=== PATIENT | male | born 1960 | race Caucasian/White ===

== ENCOUNTER 2020-07-21 08:14 | Outpatient (REF) | payer OTHER, SELFPAY ==
--- NOTE | ~2020-07-21 | XR_ITS ---
EXAMINATION: XR KNEES, STANDING AP XR KNEE, RIGHT CLINICAL INFORMATION: Right knee pain. COMPARISON: Radiographs right knee 11/06/2012. TECHNIQUE: Standing AP view of both knees is performed along with lateral and axial patella views of the right knee. FINDINGS: RIGHT: There are osteoarthritic changes at greatest medial knee joint compartment with prominent joint narrowing and mild subchondral sclerosis and secondary genu varus. Lesser degenerative changes lateral compartment. There is some fine chondrocalcinosis menisci. Lateral view shows moderate suprapatellar effusion. Hoffa's fat pad appears normal. Axial view patella shows no joint narrowing, lateralization, or tilting. Mild lateral patellar spurring. There is no fracture or dislocation or destructive process. LEFT: No significant joint narrowing. No erosive change. Question trace chondrocalcinosis menisci. Bony mineralization normal. No destructive process. XR/XR knee standing BI IMPRESSION: RIGHT: 1. Osteoarthritis greatest medial compartment with secondary genu varus. 2. Moderate suprapatellar effusion. 3. Chondrocalcinosis menisci. LEFT: 1. No significant joint narrowing. 2. Probable trace chondrocalcinosis.
--- NOTE | ~2020-07-21 | XR_ITS ---
EXAMINATION: XR KNEES, STANDING AP XR KNEE, RIGHT CLINICAL INFORMATION: Right knee pain. COMPARISON: Radiographs right knee 11/06/2012. TECHNIQUE: Standing AP view of both knees is performed along with lateral and axial patella views of the right knee. FINDINGS: RIGHT: There are osteoarthritic changes at greatest medial knee joint compartment with prominent joint narrowing and mild subchondral sclerosis and secondary genu varus. Lesser degenerative changes lateral compartment. There is some fine chondrocalcinosis menisci. Lateral view shows moderate suprapatellar effusion. Hoffa's fat pad appears normal. Axial view patella shows no joint narrowing, lateralization, or tilting. Mild lateral patellar spurring. There is no fracture or dislocation or destructive process. LEFT: No significant joint narrowing. No erosive change. Question trace chondrocalcinosis menisci. Bony mineralization normal. No destructive process. XR/XR knee RT 2V IMPRESSION: RIGHT: 1. Osteoarthritis greatest medial compartment with secondary genu varus. 2. Moderate suprapatellar effusion. 3. Chondrocalcinosis menisci. LEFT: 1. No significant joint narrowing. 2. Probable trace chondrocalcinosis.
== END 2020-07-21 08:15 | disposition home or self-care (01) ==
LOC: HO.HOSX 08:14
PROVIDERS: Visit Provider Orthopaedic Surgery
DX: M17.11 Unilateral primary osteoarthritis, right knee (principal); M25.561 Pain in right knee; M25.562 Pain in left knee
CPT/HCPCS: 20610; 73560; 73565; J1040

== ENCOUNTER → 2020-10-19 09:23 | Outpatient (BNVA) | payer OTHER, SELFPAY | PROVIDERS: PCP Internal Medicine Hematology & Oncology; Visit Provider Orthopaedic Surgery | DX: M25.561 Pain in right knee (principal); Z88.6 Allergy status to analgesic agent; I10 Essential (primary) hypertension | CPT/HCPCS: 20610; J1100 ==

== ENCOUNTER → 2020-11-02 09:32 | Outpatient (BNVA) | payer OTHER, SELFPAY | PROVIDERS: PCP Internal Medicine Hematology & Oncology; Visit Provider Orthopaedic Surgery | DX: M17.11 Unilateral primary osteoarthritis, right knee (principal) | CPT/HCPCS: 20610 ==

== ENCOUNTER → 2020-12-24 08:55 | Outpatient (BNVA) | payer OTHER, SELFPAY | PROVIDERS: Visit Provider Orthopaedic Surgery | DX: Z01.812 Encounter for preprocedural laboratory examination (principal); Z01.810 Encounter for preprocedural cardiovascular examination ==

== ENCOUNTER 2021-01-11 11:04 | Outpatient (RCR) | payer OTHER, SELFPAY ==
--- NOTE | 2021-01-11 12:01 | MHC.PT.EP ---
[facility] [place] Office [place] Office [place] Office [address] [place] Infante [address] [phone] F: [phone] F: [phone] F: [phone] F: [phone] Physical Therapy Plan of Care Date of Evaluation: Date of Surgery: Diagnosis: prehab for R TKA 01/19/21 Assessment: 60 y/o referred to PT for prehab for R TKA 01/19/21. He is having pain and difficulty with walking, stairs, squatting, and kneeling. He has been walking with single axillary crutch and knee sleeve. Examination shows decreased R knee AROM 0-10-108, increased pain, decreased HS/gastroc length, decreased knee/hip strength on R and impaired gait pattern. Extensive review on Physical therapy expectations pre and post- TKA, use of ice and elevation, safety on stairs, and HEP. No further questions at this time. D/c to I HEP and anticiapated TKA surgery. Frequency and Duration: The patient will be seen Short Term Goals: no goals needed [facility] Goals: Treatment Plan: Modalities to reduce pain, spasms and effusion. Manual therapy to restore motion and function. Therapeutic exercise to improve strength and flexibility. Neuromuscular re-education for posture and balance. Therapeutic activities to return to functional activities of daily living. Electronically signed by: Monica Montgomery PT Please sign and return to therapist. Thank you for your referral.
--- NOTE | 2021-02-02 09:32 | MHC.PT.DC ---
[facility] [place] Office [place] [facility] [place] Office [address] [place] Infante [address] [phone] F: [phone] F: [phone] F: [phone] F: [phone] Physical Therapy Discharge Report Diagnosis: prehab for R TKA 01/19/21 Date of Surgery: Date of Evaluation: 01/11/21 Date of Discharge: 02/02/21 Treatments to Date: 1 Cancellations to Date: 0 No Shows to Date: 0 Discharge Status: Independent with HEP Discharge Summary: 60 y/o referred to PT for prehab for R TKA 01/19/21. He is having pain and difficulty with walking, stairs, squatting, and kneeling. He has been walking with single axillary crutch and knee sleeve. Examination shows decreased R knee AROM 0-10-108, increased pain, decreased HS/gastroc length, decreased knee/hip strength on R and impaired gait pattern. Extensive review on Physical therapy expectations pre and post- TKA, use of ice and elevation, safety on stairs, and HEP. No further questions at this time. D/c to I HEP and anticipated TKA surgery. Electronically signed by: Monica Montgomery PT Please sign and return to therapist. Thank you for your referral.
== END 2021-02-02 09:32 | disposition home or self-care (01) ==
LOC: HO.PTCHIC 11:04
PROVIDERS: PCP Internal Medicine; Visit Provider Orthopaedic Surgery
DX: M17.11 Unilateral primary osteoarthritis, right knee (principal)
CPT/HCPCS: 97110; 97161

== ENCOUNTER → 2021-01-18 09:02 | Outpatient (BNVA) | payer OTHER, SELFPAY | PROVIDERS: PCP Internal Medicine; Visit Provider Physician Assistant ==

== ENCOUNTER 2021-01-19 06:10 | Inpatient (IN) | payer OTHER, SELFPAY ==
[2020-12-24 10:13] LABS: MANUAL DIFF FLAG NO
--- NOTE | 2020-12-24 10:19 | ECG_ITS ---
Test Reason : preop Blood Pressure : / mmHG Vent. Rate : 073 BPM Atrial Rate : 073 BPM P-R Int : 108 ms QRS Dur : 094 ms QT Int : 378 ms P-R-T Axes : 038 -50 050 degrees QTc Int : 416 ms Sinus rhythm with short FL Left axis deviation Abnormal ECG No previous ECGs available Referred By: Hank Steiner Electronically Signed By:SHANTELLE CAVAZOS MD
[2020-12-24 10:49] LABS: Basophils Absolute Auto 0.1 X10*3/uL (0.0-0.2); Basophils Percent Auto 0.6 % (0-2); Eosinophils Absolute Auto 0.2 X10*3/uL (0.0-0.4); Eosinophils Percent Auto 2.4 % (0-4); Hematocrit 46.5 % (42.0-52.0); Imm Gran Abs Auto 0.07 X10*3/uL (0.00-0.03); Imm Gran Pct Auto 0.7 % (0.0-0.4); Lymphocytes Absolute Auto 1.8 X10*3/uL (1.2-4.9); Mean Corpuscular HGB Conc 32.3 g/dl (31.0-36.0); Mean Corpuscular Volume 83.6 fL (80.0-98.0); Mean Platelet Volume 9.2 fL (9.4-12.4); Monocytes Percent Auto 10.4 % (2-11); Neutrophils Absolute Auto 6.7 x10*3/uL (2.0-8.3); Neutrophils Percent Auto 67.9 % (45-73); Platelet Count 392 X10*3/uL (160-400); Red Blood Count 5.56 X10*6/uL (4.60-5.80); Red Cell Distribution Width 14.1 % (11.0-16.0); White Blood Count 9.9 X10*3/uL (4.8-10.8)
[2020-12-24 11:25] LABS: Anion Gap 10 (12-20); Blood Urea Nitrogen 21 mg/dL (9-16); Calcium 9.1 mg/dL (8.4-10.2); Carbon Dioxide 27 mmol/L (22-29); Chloride 105 mmol/L (96-108); Estimated Glomerular Filt Rate > 60; Glucose Random 95 mg/dL (60-115); Potassium 4.3 mmol/L (3.3-5.1); Sodium 138 mmol/L (135-145)
[2021-01-08 12:21] VITALS: BP 141/79; PULSE 67; RESP 20; O2SAT 97; BMI 27.3
--- NOTE | 2021-01-08 12:53 | P.CONAN_ITS ---
Documented by User: Rhona Maciel NP 01/08/21 13:09 HPI - Anesthesia Eval Consult details Narrative: 60yo M for Right Total Knee Replacement [facility] Active Problems Active Problems: All Active Problems (Updated 01/08/21 @ 12:40 by Mercy Lucas RN) Primary osteoarthritis of right knee (Acute) Past Medical History Medical History Chronic sinusitis COVID-19 vaccine series completed Emphysema of lung History of MRSA infection Hypertension Snores Family History Family history of problems with anesthesia: No Surgical History Surgical History H/O colonoscopy H/O rhinoplasty H/O right knee surgery History of esophagogastroduodenoscopy (EGD) History of Problems with Anesthesia: No Social History Social History Are you a primary dialysis patient care technician to a significant other at home: No Do you presently have visiting nurse or other home services: No Patient Tobacco Use Status: Former Tobacco user Quit Date: 2014-quit cigarettes/currently vaping Tobacco use type: Smokeless Tobacco Years Smoked: 50 Patient Interested in Nicotine Replacement: Yes Patient Given Instructions on How to Stop Smoking: Yes Date Education Initiated: 01/08/21 Use of substances other than those prescribed or required for medical reasons: Yes Substance Use Type Other:: advised to stop 3-5 days pre-op Substance Use Frequency: Occasionally Have you been hit, kicked, punched, or otherwise hurt by someone within the past year? If so, by whom?: No Are you DNR?: No Advance Directives Information Provided: Yes (informational brochure given- patient to check if has & will bring DOS) Advance Directives on File: No Recently lost weight without trying: No Eating poorly because of decreased appetite: No Nutrition Risks: No Nutritional Risk Poor oral hygiene: No Current occupational status: employed Current occupation: [employer] Narrative Narrative: No recent illness. 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 Activity only limited to pain. Meds Allergies Allergy/AdvReac Type Severity Reaction Status Date / Time codeine [Tylenol-Codeine #3] Allergy Intermediate Hives/swell Verified 01/18/21 09:07 ing Home Medications Medication Instructions Recorded Confirmed Last Taken Type acetaminophen 325 mg capsule 650 mg PO BID 07/21/20 01/08/21 Unknown History (Tylenol) hydrochlorothiazide 25 mg tablet 25 mg PO DAILY 07/21/20 01/08/21 Unknown History amlodipine 10 mg tablet 10 mg PO DAILY 10/19/20 01/08/21 01/19/21 History triamcinolone acetonide 0.025 % 1 appl TOPICAL DAILY 10/19/20 01/08/21 Unknown History topical ointment albuterol sulfate 90 mcg/actuation 1 inh INHALATION QID PRN 01/08/21 01/08/21 Unknown History aerosol inhaler (Ventolin HFA) fluticasone propionate 50 1 spray INTRANASAL DAILY 01/08/21 01/08/21 Unknown History mcg/actuation nasal spray,suspension sildenafil 100 mg tablet 100 mg PO BEDTIME 01/18/21 Unknown History Exam Exam Date and Time: January 08, 2021 1253 Height,Weight and Vital Signs: Height 5 ft 5 in Weight 74.389 kg Last Vital Signs Pulse 67 01/08/21 12:21 Resp 20 01/08/21 12:21 BP 141/79 H 01/08/21 12:21 Pulse Ox 97 01/08/21 12:21 Pertinent Lab Results Pertinent Lab Results: Laboratory Tests 12/24/20 12/24/20 10:09 10:09 WBC 9.9 RBC 5.56 Hgb 15.0 Hct 46.5 MCV 83.6 MCH 27.0 MCHC 32.3 RDW 14.1 Plt Count 392 MPV 9.2 L Immature Gran % (Auto) 0.7 H Neut % (Auto) 67.9 Lymph % (Auto) 18.0 L Glades % (Auto) 10.4 Eos % (Auto) 2.4 Baso % (Auto) 0.6 Lymph # (Auto) 1.8 Glades # (Auto) 1.0 Eos # (Auto) 0.2 Baso # (Auto) 0.1 Abs Immat Gran (auto) 0.07 H Absolute Neuts (auto) 6.7 Absolute Nucleated RBC 0.000 Nucleated RBC % (auto) 0.0 Sodium 138 Potassium 4.3 Chloride 105 Carbon Dioxide 27 Anion Gap 10 L BUN 21 H Creatinine 1.13 Estim Creat Clear Calc TNP Estimated GFR > 60 Random Glucose 95 Calcium 9.1 Airway Mallampati Class: I TM Dist: >3cm Neck ROM: Full Adult Head Mouth w/Numbe Teeth: 1. Implant, stable Loose/Missing/Broken Teeth: Yes (Lower molar missing) Heart: RRR Lungs: CTAB Assessment and Plan Assessment Anesthesia Assessment: Anesthesia Plan Discussed, Smoking Cess. Discussed and PAT Visit Final Anesthetic Review Family History of Problems with Anesthesia: No History of Problems with Anesthesia: No Documented by User: Asaf Gonzalez MD 01/19/21 08:35 [facility] Past Medical History Medical History Chronic sinusitis COVID-19 vaccine series completed Emphysema of lung History of MRSA infection Hypertension Snores Surgical History Surgical History H/O colonoscopy H/O rhinoplasty H/O right knee surgery History of esophagogastroduodenoscopy (EGD) Social History Social History Are you a primary dialysis patient care technician to a significant other at home: No Do you presently have visiting nurse or other home services: No Patient Tobacco Use Status: Former Tobacco user Quit Date: 2014-quit cigarettes/currently vaping Tobacco use type: Smokeless Tobacco Years Smoked: 50 Patient Interested in Nicotine Replacement: Yes Patient Given Instructions on How to Stop Smoking: Yes Date Education Initiated: 01/08/21 Use of substances other than those prescribed or required for medical reasons: Yes Substance Use Type Other:: advised to stop 3-5 days pre-op Substance Use Frequency: Occasionally Have you been hit, kicked, punched, or otherwise hurt by someone within the past year? If so, by whom?: No Are you DNR?: No Advance Directives Information Provided: Yes (informational brochure given- patient to check if has & will bring DOS) Advance Directives on File: No Recently lost weight without trying: No Eating poorly because of decreased appetite: No Nutrition Risks: No Nutritional Risk Poor oral hygiene: No Current occupational status: employed Current occupation: [employer] Meds Allergies Allergy/AdvReac Type Severity Reaction Status Date / Time codeine [Tylenol-Codeine #3] Allergy Intermediate Hives/swell Verified 01/18/21 09:07 ing Home Medications Medication Instructions Recorded Confirmed Last Taken Type acetaminophen 325 mg capsule 650 mg PO BID 07/21/20 01/08/21 Unknown History (Tylenol) hydrochlorothiazide 25 mg tablet 25 mg PO DAILY 07/21/20 01/08/21 Unknown History amlodipine 10 mg tablet 10 mg PO DAILY 10/19/20 01/08/21 01/19/21 History triamcinolone acetonide 0.025 % 1 appl TOPICAL DAILY 10/19/20 01/08/21 Unknown History topical ointment albuterol sulfate 90 mcg/actuation 1 inh INHALATION QID PRN 01/08/21 01/08/21 Unknown History aerosol inhaler (Ventolin HFA) fluticasone propionate 50 1 spray INTRANASAL DAILY 01/08/21 01/08/21 Unknown History mcg/actuation nasal spray,suspension sildenafil 100 mg tablet 100 mg PO BEDTIME 01/18/21 Unknown History Exam Airway Adult Head Mouth w/Numbe Teeth: 1. Implant, stable Assessment and Plan Final Anesthetic Review NPO: Yes ASA Class: III Final Preanesthetic Review: No Changes in Pt Med Stat, Meds/Allgs Chart Reviewed, Consent Obtained/Reviewed and Anes Risks/Benef Reviewed Patient Risk: Low Procedure Risk: Intermediate Anesthetic Plan Anesthetic Plan: MAC:, Spinal and Regional Block Disposition: Standard PACU
[2021-01-08 15:26] LABS: MRSA Nasal PCR NEGATIVE (Negative); SA Nasal PCR NEGATIVE (Negative)
[2021-01-19] VITALS (15 sets, daily range): BP systolic 110–161; BP diastolic 46–84; PULSE 67–88; RESP 16–20; TEMP 36.4–36.9; O2SAT 94–100
--- NOTE | ~2021-01-19 | XR_ITS ---
EXAMINATION: XR KNEE, RIGHT CLINICAL INFORMATION: Status post right knee arthroplasty. COMPARISON: Standing AP knees and right knee radiographs 07/19/2020. TECHNIQUE: Portable AP and coarse table lateral views of the right knee are obtained for 3 views. FINDINGS: There is been total knee arthroplasty. The hardware is intact. No dislocation or destructive process. There are overlying skin anterior skin hipolito. There is subcutaneous emphysema and inferior capsular gas as expected. Linear lucency overlying The fibular neck on the lateral view is believed to represent artifact from superimposed subcutaneous emphysema. XR/XR knee RT 2V IMPRESSION: Status post right knee arthroplasty.
[2021-01-19] MEDS: Lactated Ringers 1,000 ML 100 ML IVCONT (06:45)
[2021-01-19 06:53] LABS: COVID-19 Test Negative (Negative)
[2021-01-19] MEDS: vancomycin HCL 1,000 MG in 0.9 % Sodium Chloride 250 ML 270 MG IV ×2 (06:54→20:41)
--- NOTE | 2021-01-19 07:34 | MHC.SHP ---
Pre-Procedural Eval Section A Date of Service: 01/19/21 The patient is an INPATIENT: No Changes since office visit: Yes Patient answered all questions; No Cold of Flu in the past 2 weeks, No New Medical Problems and No Changes in Medication The History & Physical has been completed within 30 days and I have reviewed it.: Yes Section B Chief Complaint: Osteoarthritis Right Knee Allergies: Allergies Allergy/AdvReac Type Severity Reaction Status Date / Time codeine [Tylenol-Codeine #3] Allergy Intermediate Hives/swell Verified 01/18/21 09:07 ing Plan I have reviewed the history and physical and performed a pertinent physical examination on my patient. No changes have occurred unless specified.
--- NOTE | 2021-01-19 09:40 | P.BOP_ITS ---
Brief Operative Note Date of Service: 01/19/21 Pre-op diagnosis: right knee OA Post-op diagnosis: same Procedure: Right TKA Implants: [place] posterior stabilized press fir Kb 04/09/09PS/35a Surgeon: Hank Steiner MD Anesthesia: regional and spinal Was an Experimental Electronics Developer used for this Procedure?: Yes Experimental Electronics Developer: Jessica Ramirez Estimated blood loss (mL): 150 IV fluids (mL): 1,000 Pathology: other Condition: stable Disposition: PACU
--- NOTE | 2021-01-19 09:43 | W.PM.OPN ---
Operative Note Operative Note Date of Service: 01/19/21 Narrative: Pre-op diagnosis: right knee OA Post-op diagnosis: same Procedure: Right TKA Implants: [place] posterior stabilized press fir Trialhajialon 04/09/PS/35a Surgeon: Hank Steiner MD Anesthesia: regional and spinal Was an Press Tender Long Goods used for this Procedure?: Yes Press Tender Long Goods: Jessica Ramirez Estimated blood loss (mL): 150 IV fluids (mL): 1,000 Pathology: other Condition: stable Disposition: PACU Procedure in detail: The patient was brought to the operating room and prepped and draped in standard sterile fashion. A time-out was called to identify proper site proper procedure proper surgeon and IV antibiotics were administered. 1 g of IV tranexamic acid was administered. I began by making a midline incision to the retinaculum and performed a medial parapatellar arthrotomy. The patella was translated laterally and the knee was flexed up. He has a 15 deg flexion contracture and eburnation of the medial copartment. I performed a medial peel and resected the infrapatellar fat pad. Alger's line was then used to drill my intramedullary femoral guide and a 13mm distal femur cut was made in 5 degrees of valgus while protecting the soft tissues. I then measured a # 3 femur and placed my cutting guide and made my anterior posterior and chamfer cuts protecting the soft tissues at all times. Once I was satisfied with my cuts I turned my attention to the tibia. I removed the meniscus and , using an external cutting guide, in line with the tibial crest and the third ray, I made my distal tibial cut in neutral slope of while protecting the posterior soft tissues at all times. An extension block was used to confirm appropriate amount of bony resection. I then sized a #4 tibia and once I was satisfied that there was complete tibial coverage I placed my trial and with the trial femur in place took the knee through range of motion. I was satisfied with the extension and flexion as well as the stability at 0, 30 and 90 degrees. I then turned my attention to the patella where I removed 1 cm from the undersurface of the patella and then trialed a 35a patellar button. Again the knee was taken through range of motion I was satisfied with the tracking. I then returned to the femur and drilled my femoral lug holes and prepared the tibia. A femoral bone plug was placed and the knee was irrigated copiously. I then press fit the patella, tibia and femur in standard fashion. I trialed different inserts until I selected a #10 insert. The final insert was placed and a 3 minutes iodine soak with local TXA was performed. The knee was then closed with a running Quill suture, a 3 0 Vicryl and hipolito on the skin. Patient was then placed in sterile dressing and brought to recovery room in stable condition there were no known complications.
[2021-01-19] MEDS: Acetaminophen 325 MG TABLET 975 MG PO (12:02)
[2021-01-19] MEDS: oxyCODONE HCl Immed Release 5 MG TABLET PO ×3 (12:04→20:42)
[2021-01-19] MEDS: Ketorolac Tromethamine 30 MG/ML VIAL 15 MG IVPUSH (12:44)
--- NOTE | 2021-01-19 14:35 | PM.IMCN ---
History of Present Illness Data of Consult Service Date: 01/19/21 Primary Care Provider: Nell Llanes MD HPI Reason for consult: htn 60M admitted to the hospital status post elective right total knee arthroplasty for ongoing osteoarthritis and difficulty ambulating that was not amenable to conservative therapy. Medicine consultation for comorbidities of hypertension and chronic sinusitis and likely COPD. Patient's blood pressure normally well controlled on amlodipine and hydrochlorothiazide, uses Flonase for chronic sinusitis, has an inhaler which she rarely needs to use for likely COPD as he has a 50 pack-year history, currently only using vape. Patient is feeling well postoperatively, has mild discomfort, no chest pain no shortness of breath no fever chills. Review of Systems Review of Systems: Constitutional: Denies fever, denies Chills Eyes: denies blurry vision ENT: denies sore throat CVS: denies chest pain Respiratory: Denies dyspnea GI: no abdominal pain : denies dysuria MSK: denies neck pain Skin: denies rash Neuro: denies specific motor weakness Psych: denies suicidal ideation Endocrine: denies heat/cold intolerance Hematologic: denies easy bleeding Allergy: denies hives [facility] Medical History (Updated 01/19/21 @ 14:40 by Juan Rodrigues MD) Chronic sinusitis COVID-19 vaccine series completed Emphysema of lung History of MRSA infection Hypertension Snores Pertinent family history: no premature CAD Surgical History H/O colonoscopy H/O rhinoplasty H/O right knee surgery History of esophagogastroduodenoscopy (EGD) Social History Are you a primary landcare facilitator to a significant other at home: No Do you presently have visiting nurse or other home services: No Patient Tobacco Use Status: Former Tobacco user Quit Date: 2014-quit cigarettes/currently vaping Tobacco use type: Smokeless Tobacco Years Smoked: 50 Patient Interested in Nicotine Replacement: Yes Patient Given Instructions on How to Stop Smoking: Yes Date Education Initiated: 01/08/21 Use of substances other than those prescribed or required for medical reasons: Yes Substance Use Type Other:: advised to stop 3-5 days pre-op Substance Use Frequency: Occasionally Have you been hit, kicked, punched, or otherwise hurt by someone within the past year? If so, by whom?: No Are you DNR?: No Advance Directives Information Provided: Yes (informational brochure given-patient to check if has & will bring DOS) Advance Directives on File: No Recently lost weight without trying: No Eating poorly because of decreased appetite: No Nutrition Risks: No Nutritional Risk Poor oral hygiene: No Current occupational status: employed Current occupation: [employer] Meds Allergies Allergy/AdvReac Type Severity Reaction Status Date / Time codeine [Tylenol-Codeine #3] Allergy Intermediate Hives/swell Verified 01/18/21 09:07 ing Active Medications: Current Medications Acetaminophen (Acetaminophen 325 Mg Tablet) 650 mg PO Q6H PRN PRN Reason: Pain, Mild (Pain Scale 1-3) Albuterol Sulfate (Albuterol Sulfate 90 Mcg 8 Gm Inhaler) 1 puff INHALE QID PRN PRN Reason: Wheezing Amlodipine Besylate (Amlodipine Besylate 10 Mg Tablet) 10 mg PO DAILY [facility]; Protocol Celecoxib (Celecoxib 200 Mg Capsule) 200 mg PO BID [facility] Docusate Sodium (Docusate Sodium 100 Mg Capsule) 100 mg PO BID [facility] Hydromorphone HCl (Hydromorphone Hcl 0.5 Mg/0.5 Ml Syringe) 0.25 mg IVPUSH Q4H PRN; Protocol PRN Reason: Pain, Severe (Pain Scale 7-10) Vancomycin HCl 1,000 mg/ (Sodium Chloride) 270 mls @ 270 mls/hr IV POSTOP ONE Stop: 01/19/21 19:59 Ondansetron HCl (Ondansetron Hcl 4 Mg/2 Ml Vial) 4 mg IVPUSH Q8H PRN PRN Reason: Nausea and Vomiting Oxycodone HCl (Oxycodone Hcl Immed Release 5 Mg Tablet) 5 mg PO Q4H PRN PRN Reason: Pain, Moderate (Pain Scale 4-6 Oxycodone HCl (Oxycodone Hcl Er 10 Mg Tab.Er.12h) 10 mg PO BID [facility] Sodium Chloride (0.9 % Sodium Chloride Flush 3 Ml Syringe) 3 ml IVFLUSH QSHIFT [facility] Home Medications Medication Instructions Recorded Confirmed Last Taken Type acetaminophen 325 mg capsule 650 mg PO BID 07/21/20 01/08/21 Unknown History (Tylenol) hydrochlorothiazide 25 mg tablet 25 mg PO DAILY 07/21/20 01/08/21 Unknown History amlodipine 10 mg tablet 10 mg PO DAILY 10/19/20 01/08/21 01/19/21 History triamcinolone acetonide 0.025 % 1 appl TOPICAL DAILY 10/19/20 01/08/21 Unknown History topical ointment albuterol sulfate 90 mcg/actuation 1 inh INHALATION QID PRN 01/08/21 01/08/21 Unknown History aerosol inhaler (Ventolin HFA) fluticasone propionate 50 1 spray INTRANASAL DAILY 01/08/21 01/08/21 Unknown History mcg/actuation nasal spray,suspension sildenafil 100 mg tablet 100 mg PO BEDTIME 01/18/21 Unknown History Physical Exam Vital Signs and Narrative: Vital Signs: Last Vital Signs Temp 98.0 F 01/19/21 14:02 Pulse 86 01/19/21 14:02 Resp 18 01/19/21 14:02 BP 161/75 H 01/19/21 14:02 Pulse Ox 95 01/19/21 14:02 BMI result Body Mass Index 27.3 General: no acute distress HEENT: atraumatic Neck: normal to visual inspection CVS: S1, S2, RRR Resp: CTA bilateral Chest: non tender GI: soft, non tender, non distended : no CVA tenderness Skin: no rashes Extremities: no edema Neuro: Oriented X3, grossly intact Psych: cooperative Results Labs CBC and Chem 7: 12/24/20 10:09 12/24/20 10:09 Labs: Laboratory Results - last 24 hr 01/19/21 06:05 COVID-19 ([facility]) Negative COVID-19 Clin Com See Note Imaging Radiologist's Impressions: Impressions Knee X-Ray 01/19/21 10:17 IMPRESSION: Status post right knee arthroplasty. Assessment and Plan (1) Hypertension: Status: Acute 60M admitted for elective right TKA s/p right TKA management per ortho htn amlodipine hctz monitor copd stable, albuterol prn chronic sinusitis flonase
[2021-01-19] MEDS: 0.9 % Sodium Chloride Flush 3 ML SYRINGE IVFLUSH ×2 (15:13→23:35)
--- NOTE | 2021-01-19 15:26 | MHC.CM.PN ---
CM met with Patient at bedside. Patient lives in a house with his /HCP, Son, and Great Niece and he has been using 1 or 2 crutches to assist with mobility. PT is recommending home with PT and Patient is agreeable to a referral to [facility]. CM has initiated and will follow for dc planning. PCP is Dr. Shane Llanes.
[2021-01-19] MEDS: Docusate Sodium 100 MG CAPSULE PO (20:42)
[2021-01-19] MEDS: Celecoxib 200 MG CAPSULE PO (20:42)
[2021-01-19] MEDS: oxyCODONE HCl ER 10 MG TAB.ER.12H PO (20:53)
[2021-01-20] VITALS (8 sets, daily range): BP systolic 131–154; BP diastolic 73–89; PULSE 72–86; RESP 16–19; TEMP 36.2–37.2; O2SAT 94–100
[2021-01-20] MEDS: oxyCODONE HCl Immed Release 5 MG TABLET PO ×4 (06:02→20:53)
[2021-01-20 06:41] LABS: Basophils Percent Auto 0.2 % (0-2); Eosinophils Percent Auto 0.1 % (0-4); Hematocrit 40.4 % (42.0-52.0); Hemoglobin 12.8 g/dl (14.0-18.0); Imm Gran Abs Auto 0.06 X10*3/uL (0.00-0.03); Imm Gran Pct Auto 0.5 % (0.0-0.4); Lymphocytes Absolute Auto 1.4 X10*3/uL (1.2-4.9); Lymphocytes Percent Auto 11.5 % (20-40); MANUAL DIFF FLAG SCAN; Mean Corpuscular HGB Conc 31.7 g/dl (31.0-36.0); Mean Corpuscular Hemoglobin 26.5 pg (27.0-33.0); Mean Corpuscular Volume 83.6 fL (80.0-98.0); Mean Platelet Volume 9.6 fL (9.4-12.4); Monocytes Absolute Auto 1.6 X10*3/uL (0.1-1.2); Monocytes Percent Auto 12.8 % (2-11); Neutrophils Absolute Auto 9.3 x10*3/uL (2.0-8.3); Neutrophils Percent Auto 74.9 % (45-73); Platelet Count 357 X10*3/uL (160-400); Red Blood Count 4.83 X10*6/uL (4.60-5.80); Red Cell Distribution Width 14.9 % (11.0-16.0); SCAN SMEAR FLAG 1; White Blood Count 12.4 X10*3/uL (4.8-10.8)
[2021-01-20 06:42] LABS: Anion Gap 12 (12-20); Blood Urea Nitrogen 21 mg/dL (9-16); Calcium 8.8 mg/dL (8.4-10.2); Carbon Dioxide 25 mmol/L (22-29); Chloride 107 mmol/L (96-108); Creatinine Clr Calc Pharmacy 56.8; Estimated Glomerular Filt Rate 57; Glucose Fasting 122 mg/dL (60-99); Potassium 4.6 mmol/L (3.3-5.1); Sodium 139 mmol/L (135-145)
[2021-01-20] MEDS: oxyCODONE HCl ER 10 MG TAB.ER.12H PO ×2 (07:11→20:53)
[2021-01-20] MEDS: amLODIPine Besylate 10 MG TABLET PO (07:12)
[2021-01-20] MEDS: Docusate Sodium 100 MG CAPSULE PO ×2 (07:12→20:53)
[2021-01-20] MEDS: Fluticasone Propionate Nasal 16 GM SPRAY 1 SPRAY NOSTRIL-B (07:12)
[2021-01-20] MEDS: Celecoxib 200 MG CAPSULE PO ×2 (07:12→20:54)
[2021-01-20] MEDS: Nicotine 21 MG PATCH.TD24 TRANSDERMA (07:12)
[2021-01-20] MEDS: hydroCHLOROthiazide 25 MG TABLET PO (07:13)
[2021-01-20] MEDS: 0.9 % Sodium Chloride Flush 3 ML SYRINGE IVFLUSH ×2 (07:13→15:01)
[2021-01-20 07:33] LABS: SLIDE REVIEW VERIFIED
[2021-01-20] MEDS: Aspirin 325 MG TABLET PO ×2 (09:16→20:52)
--- NOTE | 2021-01-20 09:47 | P.PNOP_ITS ---
Subjective Subjective Date of Service: 01/20/21 Interval history: POD 1 s/p RT TKA no overnight events resting in bed, tolerating pain well, no concerns Physical Exam Vital Signs: Vital Signs: Last Vital Signs Temp 97.4 F 01/20/21 08:00 Pulse 72 01/20/21 08:17 Resp 18 01/20/21 08:00 BP 131/82 01/20/21 08:17 Pulse Ox 96 01/20/21 08:17 BMI result Body Mass Index 27.3 Const: General: cooperative, healthy appearing and no acute distress Resp: Effort & Inspection: normal respiratory effort and able to speak in complete sentences Cardio: Rate: regular rate Peripheral pulses: Peripheral pulses 2+ throughout GI: Palpation (GI): Soft to palpation Skin: General skin exam: no rashes or lesions noted Extrem: Other: incision clean dry and intact. Becky intact. No erythema or joint effusion. Calf supple nontender. Neurovascularly intact. Procedures Date of Service Date of Service: 01/20/21 Progress Note: A&P Assessment and plan (1) Status post total right knee replacement: Status: Acute Assessment and Plan: * Continue pain mgmnt * Begin Aspirin for dvt ppx * begin PT for RT TKA * Dispo planning-Pending PT eval, pain mgmnt Fall Risk Details Current Medications: Current Medications Acetaminophen (Acetaminophen 325 Mg Tablet) 650 mg PO Q6H PRN PRN Reason: Pain, Mild (Pain Scale 1-3) Albuterol Sulfate (Albuterol Sulfate 90 Mcg 8 Gm Inhaler) 1 puff INHALE QID PRN PRN Reason: Wheezing Amlodipine Besylate (Amlodipine Besylate 10 Mg Tablet) 10 mg PO DAILY [facility]; Protocol Last Admin: 01/20/21 07:12 Dose: 10 mg Documented by: Aspirin (Aspirin 325 Mg Tablet) 325 mg PO BID [facility] Last Admin: 01/20/21 09:16 Dose: 325 mg Documented by: Celecoxib (Celecoxib 200 Mg Capsule) 200 mg PO BID [facility] Last Admin: 01/20/21 07:12 Dose: 200 mg Documented by: Docusate Sodium (Docusate Sodium 100 Mg Capsule) 100 mg PO BID [facility] Last Admin: 01/20/21 07:12 Dose: 100 mg Documented by: Fluticasone Propionate (Fluticasone Propionate Nasal 16 Gm [place]) 1 spray NOSTRIL-B DAILY [facility] Last Admin: 01/20/21 07:12 Dose: 1 spray Documented by: Hydrochlorothiazide (Hydrochlorothiazide 12.5 Mg Tablet) 12.5 mg PO DAILY [facility]; Protocol Last Admin: 01/20/21 09:16 Dose: Not Given Documented by: Hydromorphone HCl (Hydromorphone Hcl 0.5 Mg/0.5 Ml Syringe) 0.25 mg IVPUSH Q4H PRN; Protocol PRN Reason: Pain, Severe (Pain Scale 7-10) Nicotine (Nicotine 21 Mg Patch.Td24) 21 mg TRANSDERMA DAILY [facility] Last Admin: 01/20/21 07:12 Dose: 21 mg Documented by: Ondansetron HCl (Ondansetron Hcl 4 Mg/2 Ml Vial) 4 mg IVPUSH Q8H PRN PRN Reason: Nausea and Vomiting Oxycodone HCl (Oxycodone Hcl Immed Release 5 Mg Tablet) 5 mg PO Q4H PRN PRN Reason: Pain, Moderate (Pain Scale 4-6 Last Admin: 01/20/21 06:02 Dose: 5 mg Documented by: Oxycodone HCl (Oxycodone Hcl Er 10 Mg Tab.Er.12h) 10 mg PO BID [facility] Last Admin: 01/20/21 07:11 Dose: 10 mg Documented by: Sodium Chloride (0.9 % Sodium Chloride Flush 3 Ml Syringe) 3 ml IVFLUSH QSHIFT [facility] Last Admin: 01/20/21 07:13 Dose: 3 ml Documented by: Time Spent With Patient Time: Total time spent is greater than 50% in coordination of care (as documented) at patient's floor/unit and/or counseling patient: Time with patient: less than 15 minutes Quality Stroke Does the patient have a stroke diagnosis?: No VTE Prior VTE?: No VTE Risk Level:: Surgical - very high VTE Device Contraindication: N/A - Device Ordered VTE Drug Contraindication: N/A - Med Ordered
[2021-01-21] MEDS: 0.9 % Sodium Chloride Flush 3 ML SYRINGE IVFLUSH ×2 (00:48→08:10)
[2021-01-21 03:55] VITALS: BP 134/67; PULSE 83; RESP 17; TEMP 36.2; O2SAT 94
[2021-01-21 05:29] LABS: MANUAL DIFF FLAG NO
[2021-01-21 05:32] LABS: Basophils Percent Auto 0.4 % (0-2); Eosinophils Absolute Auto 0.1 X10*3/uL (0.0-0.4); Eosinophils Percent Auto 1.1 % (0-4); Hematocrit 37.9 % (42.0-52.0); Hemoglobin 12.5 g/dl (14.0-18.0); Imm Gran Abs Auto 0.06 X10*3/uL (0.00-0.03); Imm Gran Pct Auto 0.6 % (0.0-0.4); Lymphocytes Absolute Auto 3.1 X10*3/uL (1.2-4.9); Lymphocytes Percent Auto 29.2 % (20-40); Mean Corpuscular Hemoglobin 27.4 pg (27.0-33.0); Mean Corpuscular Volume 82.9 fL (80.0-98.0); Mean Platelet Volume 9.3 fL (9.4-12.4); Monocytes Absolute Auto 1.3 X10*3/uL (0.1-1.2); Monocytes Percent Auto 12.3 % (2-11); Neutrophils Absolute Auto 5.9 x10*3/uL (2.0-8.3); Neutrophils Percent Auto 56.4 % (45-73); Platelet Count 329 X10*3/uL (160-400); Red Blood Count 4.57 X10*6/uL (4.60-5.80); Red Cell Distribution Width 15.2 % (11.0-16.0); White Blood Count 10.5 X10*3/uL (4.8-10.8)
[2021-01-21 05:50] LABS: Anion Gap 13 (12-20); Blood Urea Nitrogen 17 mg/dL (9-16); Calcium 8.8 mg/dL (8.4-10.2); Carbon Dioxide 28 mmol/L (22-29); Chloride 102 mmol/L (96-108); Creatinine Clr Calc Pharmacy 59.1; Estimated Glomerular Filt Rate > 60; Glucose Fasting 93 mg/dL (60-99); Potassium 4.1 mmol/L (3.3-5.1); Sodium 139 mmol/L (135-145)
--- NOTE | 2021-01-21 07:18 | HO.POSTANES ---
Post Anesthesia Evaluation Post Anesthesia Evaluation Vital Signs: Vital Signs Temp Pulse Resp BP Pulse Ox 01/21/21 03:55 97.1 F 83 17 134/67 94 01/20/21 23:59 97.5 F 86 17 133/74 94 01/20/21 19:28 98.1 F 73 17 138/73 94 Anesthesia: Spinal and Nerve Block Mental Status: Awake Pain Control: Satisfactory Nausea/Vomiting: None Hydration: Adequate Anesthesia-Related Issues: No Anes. Related Issues
[2021-01-21 07:32] VITALS: BP 119/70; PULSE 86; RESP 18; TEMP 36.8; O2SAT 95
[2021-01-21] MEDS: Nicotine 21 MG PATCH.TD24 TRANSDERMA (08:08)
[2021-01-21] MEDS: amLODIPine Besylate 10 MG TABLET PO (08:08)
[2021-01-21] MEDS: oxyCODONE HCl ER 10 MG TAB.ER.12H PO (08:09)
[2021-01-21] MEDS: Aspirin 325 MG TABLET PO (08:09)
[2021-01-21] MEDS: hydroCHLOROthiazide 12.5 MG TABLET PO (08:09)
[2021-01-21] MEDS: Docusate Sodium 100 MG CAPSULE PO (08:09)
[2021-01-21] MEDS: Celecoxib 200 MG CAPSULE PO (08:09)
[2021-01-21] MEDS: Fluticasone Propionate Nasal 16 GM SPRAY 1 SPRAY NOSTRIL-B (08:12)
[2021-01-21 08:38] VITALS: BP 119/70; PULSE 86; O2SAT 95
--- NOTE | 2021-01-21 09:10 | P.DS_ITS ---
DS: Providers Provider Date of Service: 01/21/21 Date of admission: 01/19/21 06:10 Primary care physician: Nell Llanes MD Consults: 01/19/21 13:42 Consult to Hospitalist Routine Consulting Provider: Hospitalist Reason For Exam: post op medical management DS: Diagnosis Discharge Diagnosis (1) Status post total right knee replacement: Status: Acute DS: Summary Hospital Course Hospital Course: The patient underwent a successful Right total knee arthroplasty, was transferred to PACU and then to the floor to recover. During their stay, their vitals were stable, afebrile at 98.3. Labs were unremarkable, H/H 12.5/37.9. POD 1 he was started on ASA for DVT ppx, they also received PT services twice a day. Prior to discharge, their dressing was change, incision clean dry and intact, new Aquacel dressing applied and the plan was to be discharged home with vna svs Time Spent with Patient Time attestation: Total time spent providing and/or coordinating discharge services: Discharge coordination time: Less than 30 minutes Quality: Stroke Does the patient have a stroke diagnosis?: No Physical Exam Vital Signs: Vital Signs: Last Vital Signs Temp 98.3 F 01/21/21 07:32 Pulse 86 01/21/21 08:38 Resp 18 01/21/21 07:32 BP 119/70 01/21/21 08:38 Pulse Ox 95 01/21/21 08:38 BMI result Body Mass Index 27.3 Const: General: cooperative, healthy appearing and no acute distress Resp: Effort & Inspection: normal respiratory effort and able to speak in complete sentences Cardio: Rate: regular rate Peripheral pulses: Peripheral pulses 2+ throughout GI: Palpation (GI): Soft to palpation Skin: General skin exam: no rashes or lesions noted Extrem: Other: incision clean dry and intact. Becky intact. No erythema or joint effusion. Calf supple nontender. Neurovascularly intact. DS: Data Data Completed and Pending Completed studies during hospitalization [Text1]: Pending at discharge 01/19/21 09:21 Surgical [PTH] Routine Labs on day of discharge: Laboratory Results - last 24 hr 01/21/21 01/21/21 05:16 05:16 WBC 10.5 RBC 4.57 L Hgb 12.5 L Hct 37.9 L MCV 82.9 MCH 27.4 MCHC 33.0 RDW 15.2 Plt Count 329 MPV 9.3 L Immature Gran % (Auto) 0.6 H Neut % (Auto) 56.4 Lymph % (Auto) 29.2 [place] % (Auto) 12.3 H Eos % (Auto) 1.1 Baso % (Auto) 0.4 Lymph # (Auto) 3.1 [place] # (Auto) 1.3 H Eos # (Auto) 0.1 Baso # (Auto) 0.0 Abs Immat Gran (auto) 0.06 H Absolute Neuts (auto) 5.9 Absolute Nucleated RBC 0.000 Nucleated RBC % (auto) 0.0 Sodium 139 Potassium 4.1 Chloride 102 Carbon Dioxide 28 Anion Gap 13 BUN 17 H Creatinine 1.22 Estim Creat Clear Calc 59.1 Estimated GFR > 60 Fasting Glucose 93 Calcium 8.8 Discharge Plan Discharge Patient Disposition: Home Health Service Discharge Diagnosis: s/p rt tka Referrals: Jessica Ramirez PA-C [Physician [facility]] - 2 Weeks (02/04/21 1:00 [facility] Jessica Ramirez PA-C) Discharge Medications: New acetaminophen 325 mg Tablet 650 mg PO Q6H PRN (Reason: Pain, Mild (Pain Scale 1-3)) 30 Days Qty: 240 RF: 0 aspirin 325 mg Tablet 325 mg PO BID 42 Days Qty: 84 RF: 0 oxycodone 5 mg Tablet 5 mg PO Q4H PRN (Reason: Pain, Moderate (Pain Scale 4-6) 7 Days Qty: 42 RF: 0 Continued albuterol sulfate [Ventolin HFA] 90 mcg/actuation Hfa Aerosol Inhaler 1 inh INHALATION QID PRN (Reason: Wheezing) RF: 0 fluticasone propionate 50 mcg/actuation [place],Suspension 1 spray INTRANASAL DAILY RF: 0 (DME) Crutches See Rx Instructions RF: 0 hydrochlorothiazide 12.5 mg capsule 1 cap PO DAILY RF: 0 triamcinolone acetonide 0.025 % ointment 1 appl topical DAILY RF: 0 amlodipine 10 mg tablet 10 mg PO DAILY RF: 0 sildenafil 100 mg tablet 100 mg PO BEDTIME RF: 0 Discontinued acetaminophen [Tylenol] 325 mg capsule 650 mg PO BID RF: 0 Discharge Orders: Discharge Order (Routine); Ordered 01/21/21 Ordered By: Ta-Adrianne Meuse Diet: regular diet Activity on Discharge: Use cane or walker Stand Alone Forms: Patient Portal Discharge page Care Plan Goals: Restore function of joint Health Concerns: none Plan of Treatment: Physical Therapy Pain management DVT prophylaxis Assessment: * Physical Therapy for Total knee arthroplasty: gait training, ROM 0-12, quad strength * Limit stair climbing * No showering, no tub bath-keep dressing clean, dry and intact * No driving x6 weeks * Continue Aspirin twice a day x 6 weeks * Follow up with [facility]ics in 2 weeks
--- NOTE | 2021-01-21 09:47 | MHC.CM.PN ---
PT WILL DC HOME TODAY WITH [facility] FOR HOME PT FAMILY WILL TRANSPORT
== END 2021-01-21 12:20 | disposition home health service (06) | DRG 326 ==
LOC: HO.SSSA 06:11 → HO.S3 11:32
PROVIDERS: Physician Assistant; Admitting Provider Orthopaedic Surgery; PCP Internal Medicine; Visit Provider Orthopaedic Surgery
PROC: 0SRC0JA Replacement of Right Knee Joint with Synthetic Substitute, Uncemented, Open Approach (ICD-10-PCS; CPT 27447; principal; 2021-01-19 07:30)
DX: M17.11 Unilateral primary osteoarthritis, right knee (principal); I10 Essential (primary) hypertension; J44.9 Chronic obstructive pulmonary disease, unspecified; J32.8 Other chronic sinusitis; Z20.822 Contact with and (suspected) exposure to COVID-19; Z87.891 Personal history of nicotine dependence; Z88.5 Allergy status to narcotic agent; Z79.51 Long term (current) use of inhaled steroids; Z79.82 Long term (current) use of aspirin; Z79.899 Other long term (current) drug therapy
CPT/HCPCS: 27447; 36415; 73560; 80048; 85025; 86850; 86900; 86901; 87635; 87640; 87641; 88305; 88311; 93005; 97110; 97116; 97162; C1776; J1100; J1885; J2250; J2405; J3370

== ENCOUNTER → 2021-02-04 12:54 | Outpatient (BNVA) | payer OTHER, SELFPAY | PROVIDERS: PCP Internal Medicine; Visit Provider Physician Assistant ==

== ENCOUNTER → 2021-03-04 13:24 | Outpatient (BNVA) | payer OTHER, SELFPAY | PROVIDERS: PCP Internal Medicine; Visit Provider Physician Assistant ==

== ENCOUNTER 2021-03-24 09:00 | Outpatient (RCR) | payer OTHER, SELFPAY ==
--- NOTE | 2021-02-15 08:43 | MHC.PT.EP ---
[facility] [place] Office [place] Office [place] Office [address] Rogers Infante [address] [facility] [phone] F: [phone] F: [phone] F: [phone] F: [phone] Physical Therapy Plan of Care Date of Evaluation: Date of Surgery: 01/16/21 Diagnosis: s/p R TKA Assessment: Pt is a 60 y/o male referred to PT s/p R TKA DOS: 01/16/21 for management of long Hx of R knee pain resulting in decreased tolerance and ability to perform ambulatory and standing tasks for duration, as well as negotiating stairs, performing squatting activities and heavy HH chores secondary to decreased hip and knee strength, decreased knee ROM as well as gait abnormality, surgical healing process and pain. Pt is deemed an appropriate candidate to receive skilled PT in order to address his physical limitations to improve his functional ability. Frequency and Duration: The patient will be seen 2 x / wk x 6 wks. Short Term Goals: Initiate HEP. Blender Snuff Goals: I with HEP. Treatment Plan: Modalities to reduce pain, spasms and effusion. Manual therapy to restore motion and function. Therapeutic exercise to improve strength and flexibility. Neuromuscular re-education for posture and balance. Therapeutic activities to return to functional activities of daily living. Electronically signed by: Adan Smart PT. Please sign and return to therapist. Thank you for your referral.
--- NOTE | 2021-11-19 08:27 | MHC.PT.DC ---
[facility] [place] Office [place] Office [place] Office [address] Rogers Infante [address] [phone] F: [phone] F: [phone] F: [phone] F: [phone] Physical Therapy Discharge Report Diagnosis: s/p R TKA Date of Surgery: 01/16/21 Date of Evaluation: 02/11/21 Date of Discharge: 03/24/21 Treatments to Date: 7 Cancellations to Date: No Shows to Date: Discharge Status: Achieved Goals Improved Function Independent with HEP Discharge Summary: Pt understands the importance of HEP and is to cont I with exs. Pt unable to perform unilateral bridge due to weakness. Pt progressed with ROM, strength and gait. Pt DC with exs Electronically signed by: Adan Smart PT. Please sign and return to therapist. Thank you for your referral.
== END 2021-11-19 08:22 | disposition home or self-care (01) ==
LOC: HO.PTCHIC 09:00
PROVIDERS: Visit Provider Orthopaedic Surgery
DX: Z96.651 Presence of right artificial knee joint (principal)
CPT/HCPCS: 97110; 97161

== ENCOUNTER 2021-04-15 09:00 | Outpatient (REF) | payer OTHER, SELFPAY ==
--- NOTE | ~2021-04-15 | XR_ITS ---
EXAMINATION: XR KNEE AP STANDING, BILATERAL XR KNEE, RIGHT CLINICAL INFORMATION: Right knee pain. COMPARISON: Right knee radiographs dated 01/19/2021. TECHNIQUE: Standing AP view of both knees and lateral and sunrise views of the right knee. FINDINGS: RIGHT KNEE: Total right knee arthroplasty. Anatomic alignment of the arthroplasty components. No hardware fracture. No perihardware lucency to suggest loosening or infection. Trace joint effusion. No abnormal soft tissue calcification. LEFT KNEE: Mild medial and lateral compartment joint space narrowing with tiny marginal osteophytes. No osseous erosion. No abnormal soft tissue calcification. XR/XR knee RT 2V IMPRESSION: Right knee: Total right knee arthroplasty without evidence of hardware complication. Left knee: Mild medial and lateral compartment osteoarthritis.
--- NOTE | ~2021-04-15 | XR_ITS ---
EXAMINATION: XR KNEE AP STANDING, BILATERAL XR KNEE, RIGHT CLINICAL INFORMATION: Right knee pain. COMPARISON: Right knee radiographs dated 01/19/2021. TECHNIQUE: Standing AP view of both knees and lateral and sunrise views of the right knee. FINDINGS: RIGHT KNEE: Total right knee arthroplasty. Anatomic alignment of the arthroplasty components. No hardware fracture. No perihardware lucency to suggest loosening or infection. Trace joint effusion. No abnormal soft tissue calcification. LEFT KNEE: Mild medial and lateral compartment joint space narrowing with tiny marginal osteophytes. No osseous erosion. No abnormal soft tissue calcification. XR/XR knee standing BI IMPRESSION: Right knee: Total right knee arthroplasty without evidence of hardware complication. Left knee: Mild medial and lateral compartment osteoarthritis.
== END 2021-04-15 09:01 | disposition home or self-care (01) ==
LOC: HO.HOSX 09:00
PROVIDERS: Visit Provider Orthopaedic Surgery
DX: Z47.1 Aftercare following joint replacement surgery (principal); Z96.651 Presence of right artificial knee joint
CPT/HCPCS: 73560; 73565

== ENCOUNTER 2021-11-18 11:57 | Outpatient (REF) | payer OTHER, SELFPAY ==
--- NOTE | ~2021-11-18 | XR_ITS ---
EXAMINATION: BILATERAL AP KNEE. RIGHT KNEE. CLINICAL INFORMATION: Right knee pain COMPARISON: Right knee 04/15/2021 TECHNIQUE: AP bilateral knee standing 1 view. Right knee 2 views. FINDINGS: AP bilateral knee: There is a total right knee prosthesis. There is mild reduction in medial and lateral compartment joint space left knee. No loose bodies are bony erosive changes seen. The soft tissues are normal. Right knee: There is a total right knee prosthesis in alignment. No periprostatic fracture or loosening seen. There is no suprapatellar joint effusion. There are no loose bodies. XR/XR knee RT 2V IMPRESSION: Total right knee arthroplasty in alignment without any periprosthetic fracture or loosening. No joint effusion. Mild degenerative changes left knee.
--- NOTE | ~2021-11-18 | XR_ITS ---
EXAMINATION: BILATERAL AP KNEE. RIGHT KNEE. CLINICAL INFORMATION: Right knee pain COMPARISON: Right knee 04/15/2021 TECHNIQUE: AP bilateral knee standing 1 view. Right knee 2 views. FINDINGS: AP bilateral knee: There is a total right knee prosthesis. There is mild reduction in medial and lateral compartment joint space left knee. No loose bodies are bony erosive changes seen. The soft tissues are normal. Right knee: There is a total right knee prosthesis in alignment. No periprostatic fracture or loosening seen. There is no suprapatellar joint effusion. There are no loose bodies. XR/XR knee standing BI IMPRESSION: Total right knee arthroplasty in alignment without any periprosthetic fracture or loosening. No joint effusion. Mild degenerative changes left knee.
== END 2021-11-18 11:58 | disposition home or self-care (01) ==
LOC: HO.HOSX 11:57
PROVIDERS: Visit Provider Orthopaedic Surgery
DX: M25.561 Pain in right knee (principal)
CPT/HCPCS: 73560; 73565

== ENCOUNTER 2023-10-05 08:21 | Outpatient (AMB) | payer OTHER, SELFPAY ==
--- NOTE | 2023-10-05 08:22 | MHC.OFFVIS ---
Vital Signs 10/05/23 08:23 Height 5 ft 5 in Weight 176 lb BMI 29.3 Intake Visit Reasons: New Prob - left knee sprain, DOI 09/23/23 Intake Note: Silver is a 63 year old male who presents today for a new problem visit with complaints of left knee pain. Patient reports on 09/23/23, he was running down the dock to jump into the water and has had pain in the left knee ever since. He takes Tylenol in the AM & PM for his pain which does provide mild relief. He expains that he is working on being active, doing about 10,000 steps a day. His pain is constant worse with activity. Allergies codeine [Tylenol-Codeine #3] Allergy (Intermediate, Verified 10/05/23 08:26) Hives/swelling HPI HPI New Prob - left knee sprain, DOI 09/23/23: Details: Dimitry comes in today several years after right knee replacement. States his right knee is doing well but he was running down a dock about 2 weeks ago and irritated his left knee. He prior radiographs have demonstrated [id number] left knee osteoarthritis. States he is doing better than he was 2 weeks ago and his pain is mild. He walks tender 20,000 steps a day and states he is getting back to that. [facility] Medical History Chronic sinusitis History of MRSA infection Snores Emphysema of lung COVID-19 vaccine series completed Hypertension Surgical History History of esophagogastroduodenoscopy (EGD) H/O colonoscopy H/O rhinoplasty H/O right knee surgery Social History Household Members: Spouse Housing: House Are you a primary early breastfeeding care specialist to a significant other at home: No Do you presently have visiting nurse or other home services: No Comment: using one crutch Patient Tobacco Use Status: Former Tobacco user Tobacco use type: Smokeless Tobacco Years Smoked: 50 service: No Current occupational status: employed Current occupation: [employer] Physical Exam Vital Signs: BMI result Body Mass Index 29.3 Extrem Other: Mild tenderness palpation medial compartment left knee. Otherwise no effusion and full range of motion. Right knee well-healed anterior incision with no effusion or discoloration. Assessment & Plan Assessment & Plan (1) History of total right knee replacement: Code(s): Z96.651 - Presence of right artificial knee joint Category: Surgical Plan: Right knee is doing well. (2) Arthritis of left knee: Code(s): M17.12 - Unilateral primary osteoarthritis, left knee Category: Medical Plan: Left knee osteoarthritis. He is doing well after irritating his knee 2 weeks ago and no further intervention required. Should his pain not resolve or bother him he can return to see me for injections but at this time no further intervention warranted. Coding Level of Care Code Est Pt Level 3 (18025) Diagnoses History of total right knee replacement Z96.651 Arthritis of left knee M17.12
[2023-10-05 08:23] VITALS: BMI 29.3
== END 2023-10-05 08:46 | disposition home or self-care (01) ==
PROVIDERS: Visit Provider Orthopaedic Surgery
DX: M17.12 Unilateral primary osteoarthritis, left knee (principal); Z96.651 Presence of right artificial knee joint
CPT/HCPCS: 99212

== ENCOUNTER → 2023-10-05 08:21 | Outpatient (BNVA) | payer OTHER, SELFPAY | PROVIDERS: Visit Provider Orthopaedic Surgery ==

== ENCOUNTER 2023-10-23 14:04 | Outpatient (AMB) | payer OTHER, SELFPAY ==
--- NOTE | 2023-10-23 14:08 | A.OFFVIS_ITS ---
Intake Visit Reasons: OV-left knee pain/sprain-injection Intake Note: Silver is a 63 year old male who presents today for a follow up of his left knee OA. Patient mentioned that he hurt his left ankle on Monday10/21/23, patient has a little bruising, patient did not get treated for this injury yet. Patient would like to receive a cortisone injection today. Allergies codeine [Tylenol-Codeine #3] Allergy (Intermediate, Verified 10/05/23 08:26) Hives/swelling HPI HPI OV-left knee pain/sprain-injection: Details: Silver is a 63 year old male who presents today for a follow up of his left knee OA. Patient mentioned that he hurt his left ankle on Monday10/21/23, patient has a little bruising, patient did not get treated for this injury yet. Patient would like to receive a cortisone injection today. [facility] Medical History Chronic sinusitis History of MRSA infection Snores Emphysema of lung COVID-19 vaccine series completed Hypertension Surgical History History of esophagogastroduodenoscopy (EGD) H/O colonoscopy H/O rhinoplasty H/O right knee surgery Social History Household Members: Spouse Housing: House Are you a primary ocular care technologist to a significant other at home: No Do you presently have visiting nurse or other home services: No Comment: using one crutch Patient Tobacco Use Status: Former Tobacco user Tobacco use type: Smokeless Tobacco Years Smoked: 50 service: No Current occupational status: employed Current occupation: [employer] Physical Exam Extrem Other: Mild tenderness palpation medial compartment left knee. Otherwise no effusion a nd full range of motion. Right knee well-healed anterior incision with no effusion or discoloration. Office Procedures Joint Injection/Aspiration Joint Injection/Aspiration Details: Injected 1 mL of Decadron and 3 mL 1% lidocaine and 3 mL of 0.25% Marcaine. Site was prepped using aseptic technique. Patient tolerated the procedure well. Primary Site: left knee Approach Used: anterolateral Coding 72673 - Large joint Procedure code (CPT) selection complete Assessment & Plan Assessment & Plan (1) Arthritis of left knee: Code(s): M17.12 - Unilateral primary osteoarthritis, left knee Category: Medical Plan: This 63-year-old gentleman with left knee osteoarthritis. He has benefitted from injections in the past and it seems that the pain relief lasts for over 3 months. I injected his left knee today. He can follow up as needed but no sooner than 3 months if repeat injection is desired. Coding Level of Care Code Est Pt Level 3 (36466) Diagnoses Arthritis of left knee M17.12 CPT Codes Coding - 45305 Large joint: 94507 - Large joint ([id number])
== END 2023-10-23 14:36 | disposition home or self-care (01) ==
PROVIDERS: Visit Provider Orthopaedic Surgery
DX: M17.12 Unilateral primary osteoarthritis, left knee (principal)
CPT/HCPCS: 20610; 99213

== ENCOUNTER → 2023-10-23 14:04 | Outpatient (BNVA) | payer OTHER, SELFPAY | PROVIDERS: Visit Provider Orthopaedic Surgery | DX: M17.12 Unilateral primary osteoarthritis, left knee (principal) | CPT/HCPCS: 20610; J0665; J1100 ==